=== PATIENT | female | born 1940 | race Caucasian/White ===

== ENCOUNTER 2019-10-28 15:48 | Emergency (ER) | payer MEDICARE, OTHER, SELFPAY ==
[2019-10-28] VITALS (7 sets, daily range): BP systolic 122–161; BP diastolic 71–101; PULSE 50–77; RESP 13–18; TEMP 36.2; O2SAT 98–100; BMI 21.9
--- NOTE | 2019-10-28 16:07 | DI.RAD.S_ITS ---
PROCEDURE: XR CHEST 1V INDICATIONS: chest pain TECHNIQUE: One view of the chest was acquired. COMPARISON: [place], [place], PET NECK TO MID THIGH, 01/31/2019, 13:39. FINDINGS: Surgical changes and devices: None. Lungs and pleura: There is an irregular opacity within the right apical region corresponding to the finding on prior PET/CT. Lungs are otherwise clear. There is hyperinflation of the lungs with flattening of the hemidiaphragms compatible with COPD. No pleural effusions or pneumothorax. Mediastinum: Mediastinal contours appear unchanged, with tortuosity of the aortic arch. Heart size is normal. Bones and chest wall: No suspicious bony lesions. There is an old healed proximal left humeral shaft fracture. Overlying soft tissues appear unremarkable. IMPRESSION: 1. Irregular nodular opacity in the right apical region redemonstrated corresponding to the nodule evaluated on prior PET/CT. Although this demonstrated low uptake on the prior PET/CT, consider followup CT to demonstrate stability 12 months from the previous CT. 2. Findings compatible with COPD. Dictated by: Amador Sharma M.D. on 10/28/2019 at 15:36 Approved by: Amador Sharma M.D. on 10/28/2019 at 15:39
[2019-10-28 16:36] LABS: Add Manual Diff / Slide Review NO; Basophils Absolute Auto 0 /uL (0-100); Basophils Percent Auto 0.6 % (0-2); Eosinophils Absolute Auto 0 /uL (0-450); Eosinophils Percent Auto 0.7 % (2-4); Hematocrit 41.6 % (36-46); Hemoglobin 14.1 g/dL (12.0-16.0); Lymphocytes Absolute Auto 1000 /uL (1100-4500); Lymphocytes Percent Auto 17.2 % (25-40); Mean Corpuscular HGB Conc 33.9 % (30-36); Mean Corpuscular Hemoglobin 31.6 PG (26-34); Mean Corpuscular Volume 93.4 fL (80-100); Monocytes Absolute Auto 600 /uL (0-900); Monocytes Percent Auto 10.5 % (3-14); Neutrophils Absolute Auto 4200 /uL (1500-7000); Platelet Count 181 X10^3/uL (150-400); Red Blood Cell Count 4.46 X10^6/uL (4.0-5.2); Red Cell Distribution Width 14.3 % (11.6-14.8); White Blood Cell Count 5.9 X10^3/uL (4.5-11.0)
[2019-10-28 16:40] LABS: INR 1.1 (0.9-1.3); Prothrombin Time 12.2 SECONDS (10.1-12.7)
[2019-10-28 16:43] LABS: PTT Partial Thromboplastin Tim 27 SECONDS (26.4-36.2)
[2019-10-28 16:45] LABS: Alanine Aminotransferase 6 IU/L (<35); Albumin 4.6 g/dL (3.5-5.0); Albumin Globulin Ratio 1.6 (1.0-2.8); Alkaline Phosphatase 57 U/L (38-126); Aspartate Aminotransferase 19 IU/L (14-36); BUN Creatinine Ratio 31.1 (6-22); Bilirubin Total 0.9 mg/dL (0.2-1.3); Blood Urea Nitrogen 28 mg/dL (7-17); Calcium 9.7 mg/dL (8.4-10.2); Carbon Dioxide 29 mmol/L (22-32); Chloride 102 mmol/L (98-107); Creatine Kinase 74 U/L (30-135); Estimated Glomerular Filt Rate > 60.0 mL/min (>60); Globulin 2.8 g/dL (1.7-4.1); Glucose 82 mg/dL (80-110); HEMOLYSIS < 15 (0-50); Lipase 97 U/L (23-300); Sodium 140 mmol/L (137-145); Total Protein 7.4 g/dL (6.3-8.2)
[2019-10-28 16:57] LABS: Troponin I < 0.012 ng/mL (0.01-0.034)
--- NOTE | 2019-10-28 18:11 | ED_ITS ---
HPI - Chest Pain General Chief Complaint: Chest Pain Stated Complaint: Pressure in Neck and Chest Area Time Seen by Provider: 10/28/19 18:10 Source: patient and family Mode of arrival: Ambulatory Limitations: no limitations History of Present Illness HPI narrative: The patient developed central sternal chest discomfort, she has to turn pressure, earlier this afternoon about 1:00 p.m.. She has no chest pressure at this time. She does have discomfort in her anterior neck. She has been having the symptoms periodically in the last several days. She cannot clearly tell me how frequent she has this pain. She has no palpitations, dizziness, or dyspnea with these discomforts. She does have Parkinson's, she has been out and about with her has missed recent medications. Her tremors very active at this moment. She also sees a corrugated fastener driver, she cannot tell me why. She has no history of cardiac catheterization, and no history of [place]. She denies any recent illness. She denies sinus issues, sore throat, or dysphagia. She has no chronic respiratory issues. She has no visual changes, confusion, voice changes, or weakness/numbness. She is anxious at the time of the interview. 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 She became increasingly anxious during our interview. For chief complaint at this time is anterior neck discomfort. Review of Systems Review of Systems ROS Unobtainable: All systems reviewed & are unremarkable except as noted in HPI and below Constitutional Constitutional: Denies chills, Denies fever(s), Denies headache(s), Denies lethargy and Denies weakness Eyes Eyes: Denies change in vision and Denies loss of vision ENT Ears, Nose, Mouth, and Throat: Denies headache(s), Denies nasal congestion, Reports neck pain and Denies sore throat Comments: Anterior neck pain as discussed in HPI Cardiovascular Cardiovascular: Reports as per HPI, Reports chest pain, Denies irregular heart rhythm, Denies lightheadedness, Denies palpitations, Denies dyspnea, Denies dyspnea on exertion and Denies orthopnea Respiratory Respiratory: Denies cough, Denies dyspnea, Denies dyspnea on exertion and Denies wheezing Gastrointestinal Gastrointestinal: Denies abdominal pain, Denies change in bowel habits, Denies diarrhea, Denies nausea and Denies vomiting Musculoskeletal Musculoskeletal: Denies back pain, Denies myalgias and Reports neck pain Integumentary/Breasts Skin/Breast: Denies pruritus, Denies erythema, Denies rash and Denies wounds Neurologic Neurologic: Denies headache(s), Denies loss of vision and Denies weakness Endocrine Endocrine: Denies palpitations Allergic/Immunologic Allergic/Immunologic: Denies wheezing Patient History Medical History (Updated 10/28/19 @ 20:31 by Rodri Mcguire MD) Cardiac disease (Acute) Parkinsons (Acute) Surgical History (Updated 10/28/19 @ 19:33 by Rodri Mcguire MD) No significant past surgical history (Acute) Social History Smoking Status: Never smoker Smoking Status: Never smoker alcohol intake frequency: other Substance Use Type: does not use Exam Initial Vital Signs Initial Vital Signs: Vital Signs Temperature 97.1 F L 10/28/19 16:04 Pulse Rate 54 L 10/28/19 16:04 Respiratory Rate 18 10/28/19 16:04 Blood Pressure 132/81 10/28/19 16:04 Pulse Oximetry 98 10/28/19 16:04 Const General: cooperative and well developed Nutritional Appearance: well nourished Orientation: alert, awake, oriented x3 and not confused [facility] Head: normocephalic and atraumatic Nose: external nose normal Face and sinus: no sinus tenderness Mouth: oral mucosae normal and moist mucous membranes Throat: posterior oropharynx normal Eyes General: appearance normal, both eyes and all related structures Eyelids: eyelids normal Conjunctivae: conjunctivae normal Sclera: sclerae normal Pupils: PERRL EOM: EOM intact bilaterally Neck Neck: normal visual inspection, trachea midline, No lymphadenopathy, No midline deformity and No JVD Lymphatic: No lymphedema Other: Slight anterior tenderness bilaterally with palpation. No inflammatory changes Chest Chest: normal inspection of the chest and No tenderness Resp Effort & Inspection: normal respiratory effort and able to speak in complete sentences Auscultation: clear to auscultation bilaterally, no rales, no rhonchi and no wheezes Cardio Rate: regular rate Rhythm: regular rhythm Heart Sounds: S1 normal, S2 normal, no click, no gallops, no murmurs and no rubs Pulses: normal peripheral pulses GI Inspection: non-distended Palpation: soft, no hepatosplenomegaly, No guarding, No pulsatile mass and No tender Auscultation: normal bowel sounds Back/Spine/Pelvis Back: No CVA tenderness Cervical Spine: cervical ROM normal Thoracic/Lumbar Spine: thoracic and lumbar spine normal to inspection Skin General: no rashes or lesions noted Neuro General: alert, oriented x3 and gait normal Speech: speech normal Motor: muscle tone normal throughout Sensory Exam: no sensory deficits noted Extrem General: full ROM, no pedal edema and no calf tenderness Psych Appearance: well kempt Mental Status: mental status grossly normal Mood: anxious mood Attitude: cooperative Thought Content: normal Course Course Course Narrative: The patient has. Ache chest discomfort, but none at the time arrival. She did have anterior neck discomfort. She was having significant tremors associated with the Parkinson's that time, sent was given. She had no response to aspirin and nitroglycerin regarding the neck discomfort. Cardiovascular evaluation is benign. Similar resolved the tremor. She is given Tylenol, the neck discomfort has resolved. I suspect the vague chest discomfort and neck pain may be associated with her tremor. Nonetheless, she should be re- evaluated by her corrugated fastener driver, I've asked her to call tomorrow for appointment. I gave her instructions return here if symptoms escalate. Orders Ordered: ED Orders 10/28/19 16:07 XR chest 1V Stat EKG-12 Lead Stat 10/28/19 16:17 Complete Blood Count AUTO DIFF Stat Comprehensive Metabolic Panel Stat Lipase Stat Partial Thromboplastin Time Stat Prothrombin Time INR Stat Troponin & CK Cardiac Panel Stat Discontinued Medications Acetaminophen (Tylenol) 650 mg PO NOW ONE Stop: 10/28/19 19:32 Last Admin: 10/28/19 19:44 Dose: 650 mg Documented by: JEROME Aspirin (Aspirin Chew) 324 mg PO NOW ONE Stop: 10/28/19 18:31 Last Admin: 10/28/19 18:37 Dose: 324 mg Documented by: PARVIZ Carbidopa/Levodopa (Sinemet 25-100 Tab) 2 each PO NOW ONE Stop: 10/28/19 17:33 Last Admin: 10/28/19 18:45 Dose: 2 each Documented by: PARVIZ Nitroglycerin (Nitro-Bid) 0.5 inch TOP NOW ONE Stop: 10/28/19 18:31 Last Admin: 10/28/19 18:37 Dose: 0.5 inch Documented by: PARVIZ Vital Signs Vital signs: Vital Signs - 8 hr 12/15/19 16:04 10/28/19 18:37 10/28/19 18:45 Temperature 97.1 F L Pulse Rate 54 L 52 L 50 L Respiratory Rate 18 13 Blood Pressure 132/81 152/71 H Blood Pressure [Left Arm] 152/71 H Pulse Oximetry 98 100 10/28/19 19:00 10/28/19 19:37 Temperature Pulse Rate 50 L 54 L Respiratory Rate 13 16 Blood Pressure Blood Pressure [Left Arm] 161/101 H 135/75 Pulse Oximetry 99 99 MDM - Chest Pain Lab Data Result diagrams: 10/28/19 16:17 10/28/19 16:17 Labs: Lab Results 10/28/19 10/28/19 10/28/19 Range/Units 16:17 16:17 16:17 WBC 5.9 (4.5-11.0) X10^3/uL RBC 4.46 (4.0-5.2) X10^6/uL Hgb 14.1 (12.0-16.0) g/dL Hct 41.6 (36-46) % MCV 93.4 (80-100) fL MCH 31.6 (26-34) PG MCHC 33.9 (30-36) % RDW 14.3 (11.6-14.8) % Plt Count 181 (150-400) X10^3/uL Neut % (Auto) 71.0 (50-75) % Lymph % (Auto) 17.2 L (25-40) % [place] % (Auto) 10.5 (3-14) % Eos % (Auto) 0.7 L (2-4) % Baso % (Auto) 0.6 (0-2) % Neut # (Auto) 4200 (5508-9510) /uL Lymph # (Auto) 1000 L (5227-1029) /uL [place] # (Auto) 600 (0-900) /uL Eos # (Auto) 0 (0-450) /uL Baso # (Auto) 0 (0-100) /uL PT 12.2 (10.1-12.7) SECONDS INR 1.1 (0.9-1.3) APTT 27 (26.4-36.2) SECONDS Sodium 140 (137-145) mmol/L Potassium 4.0 (3.4-5.1) mmol/L Chloride 102 (98-107) mmol/L Carbon Dioxide 29 (22-32) mmol/L BUN 28 H (7-17) mg/dL Creatinine 0.90 (0.52-1.04) mg/dL Estimated GFR > 60.0 (>60) mL/min BUN/Creatinine Ratio 31.1 H (6-22) Glucose 82 (80-110) mg/dL Calcium 9.7 (8.4-10.2) mg/dL Total Bilirubin 0.9 (0.2-1.3) mg/dL AST 19 (14-36) IU/L ALT 6 (<35) IU/L Alkaline Phosphatase 57 (38-126) U/L Total Creatine Kinase 74 (30-135) U/L CK-MB (CK-2) TNP CK-MB (CK-2) Rel Index TNP Troponin I < 0.012 (0.01-0.034) ng/mL Total Protein 7.4 (6.3-8.2) g/dL Albumin 4.6 (3.5-5.0) g/dL Globulin 2.8 (1.7-4.1) g/dL Albumin/Globulin Ratio 1.6 (1.0-2.8) Lipase 97 (23-300) U/L Imaging Data Chest x-ray: Radiologist's impression: 11 Rodri Mcguire MD Find Patient Imaging - Sujata Perez 79 F 1940 ACTIVITY DATE EXAM STATUS AUTHOR 10/28/19 16:[address] [address] XRay Report Signed Patient: Sujata Perez DMR#: [id number] : 1940cct:[id number] Age/Sex: 79 / FDate of Service: 10/28/19 Loc: ED Accession Number: [id number] Procedure: XR chest 1V Ordering Provider: Jessica Sanabria MD PROCEDURE: XR CHEST 1V INDICATIONS: chest pain TECHNIQUE: One view of the chest was acquired. COMPARISON: [place], [place], PET NECK TO MID THIGH, 01/31/2019, 1 3:39. FINDINGS: Surgical changes and devices: None. Lungs and pleura: There is an irregular opacity within the right apical region corresponding to the finding on prior PET/CT. Lungs are otherwise clear. There is hyperinflation of the lungs with flattening of the hemidiaphragms compatible with COPD. No pleural effusions or pneumothorax. Mediastinum: Mediastinal contours appear unchanged, with tortuosity of the aortic arch. Heart size is normal. Bones and chest wall: No suspicious bony lesions. There is an old healed proximal left humeral shaft fracture. Overlying soft tissues appear unremarkable. IMPRESSION: 1. Irregular nodular opacity in the right apical region redemonstrated corresponding to the nodule evaluated on prior PET/CT. Although this demonstrated low uptake on the prior PET/CT, consider followup CT to demonstrate stability 12 months from the pre vious CT. 2. Findings compatible with COPD. Dictated by: Amador Sharma M.D. on 10/28/2019 at 15:36 Approved by: Amador Sharma M.D. on 10/28/2019 at 15:39 ECG Data Attestation: I personally reviewed and interpreted this ECG as follows: (Sinus bradycardia rate 50 beats per minute. Left axis deviation with a incomplete R BBB. Voltage criteria suggesting of LVH. No arrhythmia. No ectopy. No acute ST T wave changes.) Discharge Plan Departure Patient Disposition: Home Clinical Impression: Anterior neck pain, Parkinson's disease Instructions: DI for Neck Pain Activity Restrictions/Additional Instructions: Continue taking your current medications as prescribed. Baby aspirin, 1 tablet daily. Follow-up with Dr. Porter for further evaluation of your heart. Return to the ER for increasing chest or neck discomfort, problems breathing, weakness or dizziness. Referrals: Delio Porter MD [Physician] - Caden Masterson DO [Primary Care Provider] -
[2019-10-28] MEDS: ASPIRIN 81 MG CHEW TAB 324 MG PO (18:37)
[2019-10-28] MEDS: NITROGLYCERIN OINT 1 INCH/GM OINT...G. 0.5 INCH TOP (18:37)
[2019-10-28] MEDS: CARBIDOPA-LEVODOPA 25/100 TABLET 2 EACH PO (18:45)
[2019-10-28] MEDS: ACETAMINOPHEN 325 MG TABLET 650 MG PO (19:44)
[2019-10-28] MEDS: SIMVASTATIN 10 MG TABLET PO (21:06)
[2019-10-28] MEDS: METOPROLOL ER 25 MG TABLET 12.5 MG PO (21:07)
[2019-10-28] MEDS: CARBIDOPA-LEVODOPA ER 50/200 TABLET 1 EACH PO (21:07)
== END 2019-10-28 21:14 | disposition home or self-care (01) ==
PROVIDERS: Emergency Medicine; Emergency Provider Emergency Medicine; PCP Family Medicine
DX: M54.2 Cervicalgia (principal); R07.9 Chest pain, unspecified; R00.1 Bradycardia, unspecified; G20 Parkinson's disease
CPT/HCPCS: 36415; 71045; 80053; 82550; 83690; 84484; 85025; 85610; 85730; 93005; 93010; 99284; 99285

== ENCOUNTER → 2020-10-31 15:44 | Outpatient (CLI) | payer MEDICARE, OTHER, SELFPAY ==
--- NOTE | 2020-10-31 15:47 | DI.ECHO.S_ITS ---
[facility] +---------+ : : [address] [place] [place] : : : : [id number] : : : : Phone: [phone]+ Echocardiogram Report + + :Name: XOCHILT IBRAHIM Study Date: 10/31/2020 Height: 62 in : :[facility] Weight: 110 lb : : Gender: Female BSA: 1.5 m2 : :: 1940 Age: 80 yrs BP: 124/71 mmHg: :Reason For Study: Supraventricular tachycardia : :Ordering Physician: KIRSTEN, : :ADILENE Performed By: Gwendolyn Gonzales : :Referring: ADILENE CURTIS : + + Interpretation Summary The left ventricle is normal in size and wall thickness. The ejection fraction is estimated to be 60-65%. The right ventricle is normal in size and function. There is mild to moderate mitral regurgitation. Compared to the prior echo study, there has been an increase in the severity of mitral regurgitation. There is mild aortic regurgitation. Compared to the prior echo study, there has been an increase in the severity of aortic regurgitation. There is mild to moderate tricuspid regurgitation. Compared to the prior echo exam, there has been no change in TR severity. The right ventricular systolic pressure is estimated to be at least 36 mmHg based on an estimated right atrial pressure of 3 mm Hg. Compared to the prior echo exam, there has been a decrease in the severity of pulmonary hypertension. There is aortic root sclerosis/calcification. Procedure: A two-dimensional transthoracic echocardiogram with color flow and Doppler was performed. The study quality was technically adequate. Comparison is made with the echocardiogram of 08/14/2014. The patient was in normal sinus rhythm during the exam. Left Ventricle: The left ventricle is normal in size and wall thickness. There is no thrombus. The ejection fraction is estimated to be 60-65%. There are no focal wall motion abnormalities. MV E/A: 1.1 Med Peak E' Garfield: 7.6 cm/sec E/E' med: 10.8. Right Ventricle: The right ventricle is normal in size and function. Atria: The left atrium is moderately dilated. Both atria have mildly increased in size since the prior echo exam. The right atrium is mild to moderately dilated. There is no Doppler evidence for an interatrial shunt. The interatrial septum bows toward right atrium consistent with elevated left atrial pressure. Mitral Valve: The mitral valve leaflets are mildly calcified. There is mild mitral annular calcification. There is mild to moderate mitral regurgitation. Compared to the prior echo study, there has been an increase in the severity of mitral regurgitation. Aortic Valve: The aortic valve is trileaflet. The aortic valve opens well. There is mild aortic valve sclerosis. There is no aortic valve stenosis. There is mild aortic regurgitation. Compared to the prior echo study, there has been an increase in the severity of aortic regurgitation. Tricuspid Valve: The tricuspid valve is normal. There is mild to moderate tricuspid regurgitation. The right ventricular systolic pressure is estimated to be at least 36 mmHg based on an estimated right atrial pressure of 3 mm Hg. Compared to the prior echo exam, there has been no change in TR severity. Compared to the prior echo exam, there has been a decrease in the severity of pulmonary hypertension. Pulmonic Valve: The pulmonic valve is not well seen, but is grossly normal. Great Vessels: The aortic root is normal size. There is aortic root sclerosis/calcification. The aortic arch could not be visualized. The pulmonary artery is normal size. The IVC is of normal diameter and collapses greater than 50% with a sniff. This suggests a low right atrial pressure of 3 mm Hg. Pericardium/ Pleura There is no pericardial effusion. MMode/2D Measurements & Calculations LVIDd: 4.2 cm LVOT diam: 2.0 cm LVIDs: 2.5 cm Ao root diam: 3.0 cm FS: 40.6 % IVSd: 0.55 cm LVPWd: 0.86 cm LV blanco. diameter/BSA (cm/m^2): 2.8 LV sys. diameter/BSA (cm/m^2): 1.7 LA A2 area: 20.5 cm2 RA long axis: 5.7 cm LA A4 area: 20.6 cm2 RA area: 18.9 cm2 LA length (vol): 5.6 cm RA vol: 53.5 ml LA vol: 64.5 ml RA : 36.1 ml/m2 LA vol index: 43.5 ml/m2 IVC diam: 1.8 cm RVD1 (basal): 3.5 cm TAPSE: 2.8 cm Doppler Measurements & Calculations Ao V2 max: 154.8 cm/sec LVOT Max Garfield: 82.5 cm/sec Ao V2 mean: 105.0 cm/sec LV V1 max P.7 mmHg Ao max P.6 mmHg LV V1 VTI: 18.8 cm Ao mean P.9 mmHg MONIQUE(I,D): 1.7 cm2 Ao V2 VTI: 32.6 cm MONIQUE(V,D): 1.6 cm2 sev ratio: 0.58 MONIQUE indexed to BSA (cm^2/m^2): 1.2 MV E max garfield: 81.9 cm/sec TR max garfield: 288.3 cm/sec MV A max garfield: 75.1 cm/sec TR max P.3 mmHg MV E/A: 1.1 PA V2 max: 70.4 cm/sec Med Peak E' Garfield: 7.6 cm/sec PA V2 mean: 47.3 cm/sec E/E' med: 10.8 PA mean P.99 mmHg Lat Peak E' Garfield: 10.7 cm/sec PA Accel Time: 0.11 sec E/E' lat: 7.6 E/e' average: 9.2 MV dec time: 0.24 sec MR ERO: 0.16 cm2 MR PISA: 2.7 cm2 SV(LVOT): 57.0 ml MR flow rate: 76.3 cm3/sec MR PISA radius: 0.66 cm AV P1/2t-pr_phl: 804.0 msec Reading Physician:05:39 PM
== END ==
PROVIDERS: PCP Family Medicine; Referring Provider Internal Medicine Cardiovascular Disease; Visit Provider Internal Medicine Cardiovascular Disease
DX: I08.3 Combined rheumatic disorders of mitral, aortic and tricuspid valves (principal); I47.1 Supraventricular tachycardia
CPT/HCPCS: 93306